=== PATIENT | male | born 1965 | race Caucasian/White ===

== ENCOUNTER 2017-11-09 05:44 | Day surgery (SDC) | payer OTHER, SELFPAY ==
[2017-11-09] VITALS (8 sets, daily range): BP systolic 111–149; BP diastolic 75–96; PULSE 51–96; RESP 16; TEMP 36–36.1; O2SAT 94–100
--- NOTE | 2017-11-09 06:19 | PCM.HP.STD ---
Problem List (1) Screening for intestinal cancer Status: Acute History of Present Illness Date of Admission: 11/09/17 The patient is a 52 year old M who presents for screening colonoscopy. He has never had a previous evaluation. He denies any family history of colon polyps or colon cancer. He has had an intentional 15 pound weight loss. Denies bright red blood per rectum or melena. No abdominal pain. In 2011 he did have a myocardial infarction. He had a coronary stent placed at that time. He is routinely on aspirin and clopidogrel. He was instructed to stop his clopidogrel for 5 days pre-intervention. Past Medical History Allergies No Known Allergies Allergy (Verified 11/03/17 13:14) Home Medications: Ambulatory Orders Medication Instructions Recorded carvedilol 3.125 mg tablet 3.125 mg PO BID #180 tab 07/15/17 clopidogrel 75 mg tablet 75 mg PO QDAY #90 tab 07/15/17 lisinopril 2.5 mg tablet 2.5 mg PO QDAY #90 tab 07/15/17 Aspirin E.C. [Ecotrin] 81 mg PO QHS 11/03/17 Atorvastatin Calcium [Lipitor] 80 mg PO QHS 11/03/17 Meloxicam [Mobic] 7.5 mg PO QHS 11/03/17 Nitroglycerin 0.4 mg SL PRN PRN 11/03/17 Pantoprazole Sodium [Protonix] 40 mg PO DAILY 11/03/17 Ranitidine HCl 150 mg PO PRN PRN 11/03/17 Valacyclovir HCl [Valacyclovir] 500 mg PO PRN PRN 11/03/17 Surgical History: - - 2011 coronary angiogram with stent placement Smoking Status: Former smoker Review of Systems Constitutional: Denies: Weight Change Eyes: Denies: Blurred vision, Vision Change HEENT: Denies: Ear Pain, Eye Pain Cardiovascular: Denies: Chest Pain, Claudication Respiratory: Denies: Cough, Shortness of Breath Gastrointestinal: Denies: Hematemesis, Hematochezia Genitourinary: Denies: Dysuria, Hematuria Musculoskeletal: Denies: Leg Pain Skin: Denies: Jaundice Neurological: Denies: Confusion Psychiatric: Denies: Depression Endocrine: Denies: Change in Body Habitus Hematologic/ Lymphatic: Denies: Easy Bleeding VTE Information - Inpt Only VTE Present on Admission: No Patient Problems: Active and Suspected Problems Screening for intestinal cancer (Acute) - Physical Exam General: Alert, Oriented x3, Cooperative, No apparent distress HEENT: Atraumatic Oral: Moist Mucosa Neck: Supple Lungs: Clear to auscultation Cardiovascular: Regular rate, Regular Rhythm Abdomen: Bowel Sounds Present Extremities: No clubbing Skin: No rashes Musculoskeletal: No Tenderness to Palpation of Joints or Extremities Lymphatic: No Cervical, Supraclavicular, or Inguinal Adenopathy Neurological: Cranial nerves II-XII grossly intact Vital Signs Pulse Resp BP Pulse Ox 68 16 149/96 H 97 11/09/17 06:07 11/09/17 06:07 11/09/17 06:07 11/09/17 06:07 Oxygen Delivery Method Room Air Assessment/Plan Active and Suspected Problems Screening for intestinal cancer (Acute) Time out and informed consent was obtained. 52-year-old gentleman who presents for screening colonoscopy. He is aware of the technique, benefits, risks, alternatives. I plan to proceed under IV sedation. The patient then should be able to resume his routine medications including his routine anticoagulants. Primary CARE physicians Dr. Mitchell Santana M.D., F.A.C.S.
--- NOTE | 2017-11-09 06:46 | COLBX_PTH ---
PATIENT: YADIRA LUCERO LOC: EN U#:[id number] AGE/SX: 52/M ROOM: RE11/09/[address]: Dr. Sabino Santana MD : 1965 BED: DIS: 11/09/2017 SPEC #: [id number] RECD: 11/09/17 10:17 STATUS: VALENTÍN ARTI #: [id number] KATHIE: 11/09/17 06:[address]: Sabino Santana DEPT: SURGICAL PATHOLOGY RECD BY: Bola Oates ENTERED: 11/09/17 12:09 SP TYPE: COLON BX OTHR DR: Dr. Mitchell Denis MD Tissues: Sigmoid colon biopsy Procedures: Surgery Specimen Level IV HEADER OPERATION: Colonoscopy with biopsy PRE-OP DIAGNOSIS: Screening TISSUE SUBMITTED: Proximal sigmoid polyp biopsy MICROSCOPIC DIAGNOSIS Proximal sigmoid colon polyp, biopsy: Fragments of hyperplastic polyp. SJ:navin 11/10/17 MICROSCOPIC DESCRIPTION Slides are reviewed. GROSS DESCRIPTION Received in fixative is one container labeled with the patient's name and designated proximal sigmoid polyp biopsy. The specimen consists of multiple irregular fragments of light manzo soft tissue that in aggregate measure 1 x 0.2 x 0.1 cm. The specimen is totally submitted in one cassette. / SJ:navin 11/09/17 TC:5 CPT: 37287
--- NOTE | 2017-11-09 06:53 | PCM.OPRPT ---
Problem List (1) Screening for intestinal cancer Status: Acute Report of Operation Date of Procedure: 11/09/17 Pre-Operative Diagnosis: Screening for intestinal cancer Post-Operative Diagnosis: Sigmoid diverticulosis. 6 mm sessile polyp of the proximal sigmoid colon Surgery/Procedure Performed:: Colonoscopy with cold forcep polypectomy Description of Surgical Findings:: Timeout and informed consent was obtained. 52-year-old gentleman was taken to the endoscopy suite. He was placed in the left lateral decubitus position. Throughout the procedure total 100 mg Demerol 3.5 mg of Versed were given his intravenous sedation. Digital rectal exam performed. Normal anal tone. 1+ with loss prostate. No mass lesions. Flexible colonoscope inserted in the rectum and advanced through a slightly tortuous sigmoid colon. The scope was then readily advanced through the transverse colon. Transabdominal pressure was required to get the scope to go to the cecum. The cecum and ileocecal valve area was nicely achieved. Bowel prep was quite good. The scope was then carefully withdrawn from the cecum and ascending colon transverse colon descending colon and sigmoid. In the sigmoid colon there was moderate diverticulosis though no evidence of acute inflammation. A very flat hard to inspect 6 mm sessile polyp of the proximal sigmoid identified. Cold forceps were used to sample and eradicate this area. The scope was further withdrawn the rectum retroflexion interrupted verge inspected. This was not remarkable. Excess fluid and air was aspirated free the procedure was completed with the patient tolerating it well. Impression Small sessile polyp in the proximal sigmoid Sigmoid diverticulosis The patient will be notified of pathology results as they become available. He has not had a previous screening colonoscopy. Next colonoscopy in 3-5 years pending pathology. Cc: Dr. Mitchell Santana M.D., F.A.C.S. medications were given at 0634. Procedure was started 0636. The patient cecum was reached at 0640.59. Procedure was completed at 0650.19. Type of Anesthesia:: IV Sedation
== END 2017-11-09 09:24 | disposition home or self-care (01) ==
LOC: EN 05:46 → AC 05:48
PROVIDERS: Family Provider Family Medicine; PCP Family Medicine; Visit Provider Surgery
PROC: 0DJD8ZZ Inspection of Lower Intestinal Tract, Via Natural or Artificial Opening Endoscopic (ICD-10-PCS; CPT 45378; principal; 2017-11-09 06:25)
DX: Z12.11 Encounter for screening for malignant neoplasm of colon (principal); K57.30 Diverticulosis of large intestine without perforation or abscess without bleeding; K63.5 Polyp of colon; Z79.899 Other long term (current) drug therapy; Z79.02 Long term (current) use of antithrombotics/antiplatelets; Z79.82 Long term (current) use of aspirin; Z87.891 Personal history of nicotine dependence
CPT/HCPCS: 45380; 36415; 84484; 88305; 93005; 99152; 99153; J7120

== ENCOUNTER → 2018-02-23 17:17 | Outpatient (CLI) | payer OTHER, SELFPAY ==
--- NOTE | 2018-02-23 17:21 | RAD_ITS ---
STUDY: X-RAY - LUMBAR SPINE REASON FOR EXAM: Male, 52 years old. Low back pain radiating into the buttocks. TECHNIQUE: 5 view(s) of the lumbar spine were obtained. COMPARISON: Prior comparison studies are not available for review at this time. FINDINGS: Normal lumbar lordosis. There is no substantial scoliosis. There is mild anterolisthesis at L5-S1. There is suggestion for right-sided spondylolysis of L5. There is multilevel endplate spondylosis of the lumbar vertebrae. There is multi-level degenerative disc disease with multi-level disc space narrowing. There is mild decreased height of the L2, L1, T12 and T11 vertebral bodies. This may be developmental variant but mild old compression fractures are also possible. There is atherosclerotic calcification of the abdominal aorta without a demonstrated aneurysm. RAD/L/S Spine Min 4 Views IMPRESSION: 1. Multilevel degenerative disc disease and degenerative arthropathy of the lumbar spine. 2. Mild anterolisthesis at L5-S1 with spondylolysis of L5. Electronically Signed: Shruthi Scott MD at 5:33 EDT , Service support ,
== END ==
PROVIDERS: Family Provider Family Medicine; PCP Family Medicine; Visit Provider Family Medicine
DX: M54.5 Low back pain (principal)
CPT/HCPCS: 72110

== ENCOUNTER → 2018-06-10 09:11 | Outpatient (CLI) | payer OTHER, SELFPAY ==
--- NOTE | 2018-06-10 10:00 | MRI_ITS ---
STUDY: MRI LUMBAR SPINE WITHOUT CONTRAST REASON FOR EXAM: Male, 52 years old. Radiculopathy, L POSTERIOR BUTTOCK, NKI X 9 MON. TECHNIQUE: Standardized fat and water weighted pulse sequences were obtained in the sagittal and axial planes. COMPARISON: X-ray dated February 23, 2018 FINDINGS: T12-L1: There is minimal disc space narrowing and endplate spondylosis. There is no significant disc herniation, central canal or foraminal stenosis. There is straightening of the normal lumbar lordosis. There is no substantial scoliosis. Normal conus medullaris that terminates at the L1 L1-2: There is minimal disc space narrowing and endplate spondylosis. There is no significant disc herniation, central canal or foraminal stenosis. L2-3: There is mild disc space narrowing and endplate spondylosis. There is no significant disc herniation, central canal or foraminal stenosis. L3-4: There is mild disc space narrowing and endplate spondylosis. There is no significant disc herniation, central canal or foraminal stenosis. L4-5: There is minimal disc space narrowing and endplate spondylosis. There is no significant disc herniation, central canal or foraminal stenosis. There is moderate facet arthropathy L5-S1: There is severe disc space narrowing and endplates spondylosis. There is spondylolysis with grade 1 anterolisthesis and disc uncovering without significant central canal stenosis. There is moderate bilateral foraminal stenosis Normal visualized sacral ala. Normal visualized paraspinous soft tissue structures. MRI/Spine Lumbar (Routine) IMPRESSION: L5/S1: Spondylolysis with Grade 1 anterolisthesis. Moderate bilateral foraminal stenosis Electronically Signed: Darrell Jeffrey MD at 9:54 EST Tel , Service support ,
== END ==
PROVIDERS: Family Provider Family Medicine; PCP Family Medicine; Referring Provider Family Medicine; Visit Provider Family Medicine
DX: M54.31 Sciatica, right side (principal); M54.32 Sciatica, left side
CPT/HCPCS: 72148

== ENCOUNTER → 2019-02-14 10:31 | Outpatient (CLI) | payer OTHER, SELFPAY ==
[2018-11-17 13:32] VITALS: BMI 36.3
[2019-02-14 12:47] LABS: Anion Gap 7 (5-15); BUN 14 mg/dL (7-18); BUN/Creat Ratio 17.4 RATIO (10-20); Calcium,Total 8.7 mg/dL (8.5-10.1); Chloride 110 mmol/L (98-107); EST Glomerular Filtration Rate 107 mL/min (>60); Est Glom Filt Rate - Afr Amer 129 mL/min (>60); Glucose 85 mg/dL (74-106); Potassium 4.2 mmol/L (3.5-5.1); Sodium Level 142 mmol/L (136-145)
== END ==
PROVIDERS: Family Provider Family Medicine; PCP Family Medicine; Visit Provider Family Medicine
DX: I10 Essential (primary) hypertension (principal)
CPT/HCPCS: 36415; 80048

== ENCOUNTER → 2020-06-03 10:14 | Outpatient (CLI) | payer OTHER, SELFPAY ==
[2019-11-23 16:11] VITALS: BMI 35.5
[2020-06-03 12:57] LABS: ALB/GLOB Ratio 0.9 RATIO (0.9-2.4); AST(SGOT) 24 U/L (15-37); Alanine Aminotransfer ALT/SGPT 38 U/L (16-61); Albumin, Serum 3.7 g/dL (3.2-5.0); Alkaline Phosphatase 70 U/L (45-117); Anion Gap 7 (5-15); BUN 19 mg/dL (7-18); BUN/Creat Ratio 24.1 RATIO (10-20); Calcium,Total 8.7 mg/dL (8.5-10.1); Chloride 106 mmol/L (98-107); Cholesterol 155 mg/dL (200); Creatinine, Serum 0.79 mg/dL (0.70-1.30); EST Glomerular Filtration Rate 109 mL/min (>60); Est Glom Filt Rate - Afr Amer 132 mL/min (>60); Glucose 100 mg/dL (74-106); High Density Lipoprotein 38 mg/dL; Potassium 4.4 mmol/L (3.5-5.1); Protein, Total 7.7 g/dL (6.4-8.2); Sodium Level 139 mmol/L (136-145); Thyroid Stim Hormone (TSH) 4.15 uIU/mL (0.358-3.74); Triglycerides 76 mg/dL; Very Low Density Lipoprotein 15 mg/dL (5-40)
[2020-06-03 14:28] LABS: T4 Free Direct 0.92 ng/dL (0.76-1.46)
== END ==
PROVIDERS: Visit Provider Family Medicine
DX: I10 Essential (primary) hypertension (principal); E78.5 Hyperlipidemia, unspecified; E03.9 Hypothyroidism, unspecified
CPT/HCPCS: 36415; 80053; 80061; 84439; 84443

== ENCOUNTER 2020-08-27 09:27 | Outpatient (RCR) | payer OTHER, SELFPAY ==
[2019-11-23 16:11] VITALS: BMI 35.5
[2020-08-27] MEDS: COVID-19 VACC, MRNA(PFIZER)/PF 30 MCG/0.3 ML SYRINGE IM (17:24)
[2020-09-17] MEDS: COVID-19 VACC, MRNA(PFIZER)/PF 30 MCG/0.3 ML SYRINGE IM (16:51)
== END 2020-11-19 23:59 ==
LOC: IMMUN 09:27
PROVIDERS: PCP Family Medicine; Referring Provider Family Medicine; Visit Provider Family Medicine
DX: Z23 Encounter for immunization (principal)
CPT/HCPCS: 0001A; 0002A; 91300

== ENCOUNTER → 2020-09-19 13:47 | Outpatient (CLI) | payer OTHER, SELFPAY ==
[2019-11-23 16:11] VITALS: BMI 35.5
--- NOTE | 2020-09-19 14:07 | CDU_ITS ---
Reason For Study: TIA, carotid stenosis Rt. Velocities/BP Lt. Velocities/BP Prox CCA 79.9/30.4 cm/sec. Prox CCA 92.4/28.6 cm/sec. Mid CCA 94.3/26.5 cm/sec. Mid CCA 86.3/28.6 cm/sec. Dist CCA 85.2/25.2 cm/sec. Dist CCA 69.1/22.5 cm/sec. Prox ICA 95.5/29.8 cm/sec. Prox ICA 63/21.2 cm/sec. Mid ICA 73.6/31.6 cm/sec. Mid ICA 81.4/37.2 cm/sec. Dist ICA 86.4/35.3 cm/sec. Dist ICA 74/33.5 cm/sec. Rt. ICA/CCA = 1.12. Lt. ICA/CCA = 0.94. Prox ECA 143/38.9 cm/sec. Prox ECA 104.7/26.1 cm/sec. Rt. Vert. 61.8/28.6 cm/sec. Lt. Vert. 53.2/17.6 cm/sec. Right Extracranial There is intimal thickening but no significant atherosclerotic plaque noted in the right common carotid artery. There is heterogeneous, irregular atherosclerotic plaque noted in the right internal carotid artery. There is intimal thickening but no significant atherosclerotic plaque noted in the right external carotid artery. Antegrade flow is noted in the right vertebral artery. Left Extracranial There is intimal thickening but no significant atherosclerotic plaque noted in the left common carotid artery. There is homogeneous, smooth atherosclerotic plaque noted in the left internal carotid artery. There is heterogeneous, smooth atherosclerotic plaque noted in the left external carotid artery. Antegrade flow is noted in the left vertebral artery. Procedure Carotid Duplex 93052. This is a Carotid Duplex examination using B-mode, color flow and specral Doppler. Exam performed in department. VL/Carotid Duplex Ultrasound Interpretation Summary Mild (<50%) stenosis right extracranial internal carotid. Mild (<50%) stenosis left extracranial internal carotid. Flow within the vertebral arteries is antegrade bilaterally. Ordering Physician: Mitchell Denis Referring Physician: Mitchell Denis Performed By: Gwen Rogers RVT
== END ==
PROVIDERS: PCP Family Medicine; Referring Provider Family Medicine; Visit Provider Family Medicine
DX: Z86.73 Personal history of transient ischemic attack (TIA), and cerebral infarction without residual deficits (principal)
CPT/HCPCS: 93880

== ENCOUNTER → 2020-10-18 06:57 | Outpatient (CLI) | payer OTHER, SELFPAY ==
[2020-09-25 15:36] VITALS: BMI 35.6
--- NOTE | 2020-10-18 17:55 | STRESSREP_ITS ---
Stress Test Report Exercise myocardial perfusion stress test. 54-year-old man with a history of coronary disease status post previous stenting of the circumflex artery. Stress protocol: Resting EKG demonstrates normal sinus rhythm with a rate of 63 bpm normal intervals are noted resting blood pressure is 140/86 mmHg. The patient exercised according to regular Scott protocol for total duration of 9 minutes and 30 seconds the maximum heart rate attained was 146 bpm which was 87% of maximum predicted heart rate the maximum workload was 10.9 metabolic equiva lents. At rest there were no ST or T wave changes noted to suggest ischemia and at peak exercise upsloping ST changes only were noted with did not meet the criteria for ischemia. No clinical angina was noted. The peak blood pressure was 184/88 mmHg. The test was terminated due to leg discomfort. No chest pain was noted. Myocardial perfusion protocol. 14.9 mCi of technetium 99m sestamibi was injected at rest. The patient exercised according to regular Scott protocol for 9-1/2 minutes and at peak exercise 44.7 mCi of technetium 99m sestamibi was injected stress images were obtained stress and rest images were reconstructed in comparing the short axis vertical long and horizontal long axis. Gated images were also obtained. Perfusion SPECT analysis: Review of the stress images demonstrate normal uptake of tracer noted in all areas of the myocardium. The resting images similarly demonstrate normal uptake of tracer noted in all areas of the myocardium. No areas of reversibility are noted to suggest ischemia and no previous infarct is noted. Gated SPECT analysis: The gated ejection fraction is 62%. Conclusion: Normal exercise myocardial perfusion stress test at a high workload. Good functional aerobic capacity. No ischemia noted.
== END ==
PROVIDERS: PCP Family Medicine; Referring Provider Physician Assistant Medical; Visit Provider Physician Assistant Medical
DX: I25.10 Atherosclerotic heart disease of native coronary artery without angina pectoris (principal); R07.9 Chest pain, unspecified
CPT/HCPCS: 78452; 93017; A9500; A4216

== ENCOUNTER 2021-07-24 12:48 | Outpatient (CLI) | payer OTHER, SELFPAY ==
--- NOTE | 2021-07-24 12:57 | VDLE_ITS ---
Reason For Study: pain Procedure LEFT This is a venous duplex using B-mode, color GSV is normal. flow and spectral Doppler. CFV is compressible, spontaneous, phasic, Exam performed in department. competent, and demonstrates normal The exam was abbreviated due to the COVID 19 augmentation. protocol. FV is compressible, spontaneous, phasic, The exam was diagnostic. competent and demonstrates normal A preliminary report was called and/or faxed augmentation. to [place] PA-C. POP V is compressible, spontaneous, phasic, competent and demonstrates normal augmentation. T/P Trunk is compressible. PTV is compressible. LT PerV is compressible. Heterogeneous area in the gastroc muscle measuring .95 x 3.14 cm in short. Area is nonvascular. VL/Venous Duplex US, Unilateral Interpretation Summary There is no evidence of left lower extremity deep vein thrombosis. Left great s aphenous vein appears patent and compressible segmentally. 0.95 x 3.14 cm nonvascular structure withi n the left gastrocnemius muscle. Clinical correlation indicated Abbreviated COVID-19 protocol utilized Ordering Physician: Rancho Don Performed By: Mukesh Duff RVT
== END 2021-07-24 23:59 | disposition home or self-care (01) ==
PROVIDERS: PCP Family Medicine; Referring Provider Physician Assistant Surgical; Visit Provider Physician Assistant Surgical
DX: M79.662 Pain in left lower leg (principal)
CPT/HCPCS: 93971

== ENCOUNTER 2021-08-20 16:51 | Outpatient (CLI) | payer OTHER, SELFPAY | END 2021-08-20 23:59 | disposition home or self-care (01) | PROVIDERS: PCP Family Medicine; Referring Provider Nurse Practitioner Gerontology; Visit Provider Nurse Practitioner Gerontology | DX: G47.10 Hypersomnia, unspecified (principal); I25.10 Atherosclerotic heart disease of native coronary artery without angina pectoris; I10 Essential (primary) hypertension | CPT/HCPCS: 95806 ==

== ENCOUNTER 2021-09-23 18:26 | Outpatient (CLI) | payer OTHER, SELFPAY ==
--- NOTE | 2021-09-23 18:28 | CT_ITS ---
STUDY: LOW DOSE CT LUNG CANCER SCREENING REASON FOR EXAM: Male, 55 years old. Smoker and gt; 40 pack years RADIATION DOSAGE (If Supplied By Facility): CTDIvol = ( 4.02 ) mGy, DLP = ( 140.44 ) mGycm TECHNIQUE: No contrast was administered. Low dose technique was utilized (average mAS-38 and kVp 120). 1.25 mm axial source images with a slice interval of 1.25-mm were reconstructed in lung windows. 2.5 mm axial source images with a slice interval of 2.5-mm were reconstructed in lung windows. 5.0 mm axial source images with a slice interval of 5.0-mm were reconstructed in soft tissue windows. COMPARISON: None. NODULES: No suspicious nodules are seen. Emphysema: No evidence of emphysematous change. Endobronchial lesion: None Aorta: Mild degree of atherosclerotic plaque formation. CORONARY ARTERIES: Coronary artery calcification Heart: Unremarkable Pulmonary artery: Unremarkable Mediastinal nodes: Small mediastinal lymph nodes. Other chest and abdominal findings: CT/Low Dose CT Lung Screening IMPRESSION: Lung-RADS category 2 - Continue annual screening with LDCT in 12 months. IMPORTANT NOTES FOR USE: ACR Lung-RADS Version 1.1 Assessment Categories Release Date: 2018 Category: Coded 0-4 bases on nodule(s) with highest degree of suspicion. Negative screen is defined as categories 1 and 2; a positive screen is defined as categories 3 and 4. Category 3 and 4A nodules that are unchanged on interval CT should be coded as category 2, and individuals returned to screening in 12 months. Category 4X: Category 3 or 4 nodules with additional imaging findings that increase the suspicion of lung cancer, such as spiculation, GGN that doubles in size in 1 year, enlarged lymph notes, etc. Category Modifiers: S (significant finding unrelated to lung cancer) Electronically Signed: Jude Rothman MD at 8:46 EDT ,
== END 2021-09-23 23:59 | disposition home or self-care (01) ==
LOC: CT 18:28
PROVIDERS: PCP Family Medicine; Visit Provider Nurse Practitioner Acute Care
DX: F17.210 Nicotine dependence, cigarettes, uncomplicated (principal)
CPT/HCPCS: 71271

== ENCOUNTER → 2021-11-14 | Outpatient (CLI) | payer OTHER, SELFPAY ==
--- NOTE | 2021-11-14 10:40 | VDLE_ITS ---
Reason For Study: Pain Procedure LEFT This is a venous duplex using B-mode, color GSV is normal. flow and spectral Doppler. CFV is compressible, spontaneous, phasic, Exam performed in department. competent, and demonstrates normal A preliminary report was called and/or faxed augmentation. to [place]. FV is compressible, spontaneous, phasic, competent and demonstrates normal augmentation. POP V is compressible, spontaneous, phasic, competent and demonstrates normal augmentation. T/P Trunk is compressible. PTV is compressible. LT PerV is compressible. Nonvascularized structure noted in the posterior knee calf muscle measuring 2.36 x 3.21 x 5.89 cm. VL/Venous Duplex US, Unilateral Interpretation Summary There is no evidence of left lower extremity deep vein thrombosis. Left great s aphenous vein appears patent and compressible segmentally. Nonvascularized complex structure posterio r left knee calf musculature measuring 2.36 x 3.21 x 5.89 cm of undetermined etiology. Clinical correlation would be appropriate. Ordering Physician: Rancho Don Performed By: Gwen Rogers RVT
== END | disposition home or self-care (01) ==
LOC: CVS 10:37
PROVIDERS: Referring Provider Physician Assistant Surgical; Visit Provider Physician Assistant Surgical
DX: M79.662 Pain in left lower leg (principal)
CPT/HCPCS: 93971

== ENCOUNTER 2021-12-25 16:43 | Emergency (ER) | payer OTHER, SELFPAY ==
[2021-12-25 16:44] VITALS: BP 141/89; PULSE 67; RESP 16; TEMP 37.1; O2SAT 98; BMI 33.4
--- NOTE | 2021-12-25 17:07 | CT_ITS ---
EXAM: CT ABDOMEN AND PELVIS WITHOUT INTRAVENOUS CONTRAST CLINICAL INDICATION: Pain TECHNIQUE: Helically acquired images were obtained of the abdomen and pelvis without intravenous contrast. This CT exam was performed using one or more of the following dose reduction techniques: automated exposure control, adjustment of the mA and/or kV according to patient size, and/or use of iterative reconstruction technique. This report was created using [employer] report generation technology. RADIATION DOSE: CTDIvol = 17.57 mGy, DLP = 895.64 mGy-cm. COMPARISON: None. FINDINGS: LOWER THORAX: Coronary artery calcifications. Lung bases are clear. No cardiomegaly. No significant pericardial effusion. ABDOMEN: LIVER: Unremarkable. Homogeneous. GALLBLADDER AND BILE DUCTS: Unremarkable. No calcified gallstones. No gallbladder distention or wall edema. No intra- or extrahepatic biliary ductal dilation. PANCREAS: Unremarkable. No focal cystic mass. SPLEEN: Unremarkable. Normal size without focal cystic or solid mass. ADRENALS: Unremarkable. No nodules. KIDNEYS AND URETERS: Nonobstructing 3 mm stone left kidney. Small cyst left kidney. No follow-up imaging required. Normal renal size and position. STOMACH AND BOWEL: Scattered diverticula without diverticulitis. No stomach or bowel distention. PELVIS: APPENDIX: No evidence of acute appendicitis. BLADDER: Unremarkable. REPRODUCTIVE: Unremarkable as visualized. No mass. ABDOMEN and PELVIS: INTRAPERITONEAL SPACE: Unremarkable. No ascites or other fluid collection. No free air. BONES/JOINTS: Bilateral spondylolysis with grade 1 spondylolisthesis L5-S1. No suspicious lytic or blastic abnormality. SOFT TISSUES: Unremarkable. No discrete abdominal or pelvic wall hernia. VASCULATURE: Unremarkable. Abdominal aorta is non-dilated. LYMPH NODES: Unremarkable. No enlarged lymph nodes. CT/Abdomen/Pelvis without Cont IMPRESSION: 1. Coronary artery disease. 2. Nonobstructing 3 mm stone left kidney. 3. Scattered diverticula without diverticulitis. 4. Bilateral spondylolysis with grade 1 spondylolisthesis L5-S1. 5. No acute abdominal pelvic abnormality. Electronically Signed: Magen Hernadez MD at 17:56 EDT ,
--- NOTE | 2021-12-25 17:08 | ED.VIS.GI ---
HPI HPI - GI History of Present Illness Chief Complaint: Flank Pain Informant: patient Abdominal Pain/Flank Pain Onset: Today and Yesterday Context: Gradual Onset Timing: Intermittent Quality: Aching Location: RLQ and Right Flank Current Severity: Mild Maximum Severity: Moderate Worsened by: Movement Relieved by: Remaining Still Nausea/Vomiting/Emesis GI Symptom: Negative for Nausea or Vomiting Associated Symptoms Associated Symptoms: Negative for Dysuria, Frequency, Hematuria or Urgency Narrative Narrative: 56-year-old male history of prior [place] with cardiac stent on Plavix. States yesterday he started having right lower quadrant right flank pain. More significant today. Denies any nausea, vomiting, diarrhea or fever. No constipation. No dysuria or hematuria. No trauma. He denies any history of kidney stones. Has never had any abdominal surgeries. Denies any back pain. Prior similar symptoms: No Recent Illness/Hospitalization: No PFSH PFS Medical History (Updated 12/25/21 @ 18:[address] Boyd Bryant MD) Atherosclerosis of coronary artery of [place] without angina pectoris Chronic neck and back pain Essential (primary) hypertension History of inferior wall myocardial infarction Hyperlipidemia Knee pain Shoulder pain Home Medications aspirin 81 mg tablet,delayed release 81 mg PO QHS 11/03/17 [History Last Taken Unknown] nitroglycerin 0.4 mg sublingual tablet 0.4 mg sublingual PRN PRN chest pain 11/03/17 [History Last Taken Unknown] valacyclovir 500 mg tablet 500 mg PO PRN PRN cold sores 11/03/17 [History Last Taken Unknown] pantoprazole 20 mg tablet,delayed release 20 mg PO .MWF 09/26/20 [History Last Taken Unknown] atorvastatin 80 mg tablet 80 mg PO QHS #90 tabs 05/20/21 [Rx Last Taken Unknown] carvedilol 3.125 mg tablet (Coreg) 3.125 mg PO BID #180 tabs 05/20/21 [Rx Last Taken Unknown] clopidogrel 75 mg tablet (Plavix) 75 mg PO QDAY #90 tabs 05/20/21 [Rx Last Taken Unknown] lisinopril 5 mg tablet 5 mg PO DAILY #90 tabs 11/06/21 [Rx Last Taken Unknown] Allergy/AdvReac Type Severity Reaction Status Date / Time No Known Allergies Allergy Verified 12/25/21 16:45 Surgical History History of coronary artery stent placement (08/15/11) History of knee surgery Social History Smoking Status: Former smoker Tobacco: How many years used: 15 Electronic Cigarette Use: not used how long ago did patient quit smoking: Quit in 2013 second hand exposure: No alcohol intake: never substance use type: does not use ROS ROS ED ROS Narrative Right lower quadrant and flank abdominal pain. Denies nausea, vomiting, diarrhea or fever. No dysuria. Review of Systems ROS Unobtainable: Denies due to encephalopathy Constitutional Constitutional ED: Denies chills ENT ENT ED: Denies ear pain Cardiovascular Cardiovascular: Denies chest pain Respiratory/Chest Respiratory/Chest: Denies cough Gastrointestinal Gastrointestinal: Reports abdominal pain; Denies constipation, diarrhea, melena, nausea or vomiting Genitourinary Genitourinary ED: Denies dysuria or hematuria Musculoskeletal Musculoskeletal: Denies arthralgias Integumentary Denies abscess Neurologic Neurologic: Denies headache(s) Psychiatric Psychiatric: Denies anxiety Endocrine Endocrinology: Denies polydipsia Hematologic/Lymphatic Hematologic/Lymphatic: Denies easy bleeding Allergic/Immunologic Allergic/Immunologic ED: Denies mouth swelling EXAM Physical Exam Narrative Exam Narrative: 56-year-old male no acute distress. Vital signs stable afebrile. present at bedside. H EENT exam unremarkable. Lungs are clear. Heart regular rhythm. Abdomen soft nondistended normal bowel sounds no peritoneal signs. Mild right lower quadrant tenderness. Is not specifically McBurney's point. There is no signs of trauma. Right upper and left side of his abdomen is nontender. There is no hernia or mass. No distention. No obstruction. No pulsatile mass. External exam unremarkable. No palpable or visual hernia. Back nontender. Neurologic exam normal. Moving all 4 extremities. Const Vital Signs: 12/25/21 16:44 12/25/21 18:46 Temperature 98.8 F Temperature Source Temporal Pulse Rate 67 Respiratory Rate 16 16 Blood Pressure 141/89 H Blood Pressure Mean 106 Pulse Ox 98 Oxygen Delivery Method Room Air Positive well nourished, well developed and obese; Negative for cachectic, contractures or unkempt General Appearance ED: well developed; Negative for unkempt, cachectic or contractures Nutritional Appearance: obese; Negative for cachectic HEENT Reports moist mucous membranes normocephalic and atraumatic; Negative for trauma or tenderness Eyes PERRL and EOMs intact bilaterally General Eye ED: Negative for pale conjunctiva or scleral icterus Neck no lymphadenopathy, supple and no JVD General: Negative for tenderness Lymph Lymphatic: Negative for other Resp normal respiratory effort Effort and Inspection: Negative for respiratory distress Auscultation: Negative for rales or rhonchi Cardio regular rate, regular rhythm, S1 normal heart sound, S2 normal heart sound and no murmurs Rate: Negative for bradycardia Rhythm: Negative for abnormal rhythm GI non-distended and no masses; Negative for non-tender Inspection: Negative for abdominal distention Auscultation: normoactive bowel sounds; Negative for hyperactive bowel sounds or hypoactive bowel sounds Palpation: soft and tender; Negative for guarding, rigid, hepatomegaly, splenomegaly, hernia, mass, pulsatile mass or rebound tenderness present Back/Spine no CVA tenderness General Back: Negative for CVA tenderness Cervical Spine: Negative for cervical spine tenderness Thoracic Spine / Upper Back: Negative for thoracic spinal tenderness Lumbar Spine / Lower Back: Negative for lumbar spinal tenderness Extremity full ROM General Extremety ED: Negative for edema or tenderness General Extremity: Negative for edema Neuro CN's II-XII intact bilaterally and moves all extremities Sensorium / Orientation: alert, oriented to person, oriented to place and oriented to time; Negative for orientation impaired, confused, lethargic or stuporous Motor Exam: strength 5/5 throughout; Negative for general weakness Psych mental status grossly normal and thought process normal Appearance: Negative for unkempt Skin no wounds General Skin Exam: Negative for jaundice Lesions: no lesions Rashes: no rashes Trauma: Negative for abrasion Nails: Negative for discolored MDM MDM MDM Narrative Medical decision making narrative: 56-year-old male right lower quadrant flank pain. Exam has pain with rotation about his hips. And lifting his left leg. There is mild tenderness of the right lower quadrant. Its not really consistent with appendicitis. CAT scan labs are pending. This could be appendicitis but will think it is likely. Could be a kidney stone. May be musculoskeletal pain. Repeat exam patient doing well at 6:58 PM. Work-up negative. This may just be abdominal wall pain. Patient states recently lost weight and is very wearing his belt a lot tighter to help keep his pants up. And he may just have an abdominal wall strain or contusion. He will be discharged home with outpatient follow-up if is not improving. Lab Data Attestation: I reviewed the patient's lab results. Lab results narrative: CBC normal. White count of 7. H&H 13 and 42. Electrolytes show a gap of 4 and creatinine 21 0.8. Liver enzymes unremarkable. Glucose 118. Urinalysis negative. 1+ bacteria. No white or red cells. No nitrites. CAT scan of the abdomen shows no acute process. Labs: Laboratory Results - last 24 hr 12/25/21 12/25/21 12/25/21 17:00 17:00 17:15 WBC 7.5 RBC 4.59 L Hgb 13.5 Hct 42.0 MCV 91.5 MCH 29.4 MCHC 32.1 RDW Std Deviation 42.9 RDW Coeff of Beth 12.9 Plt Count 228 MPV 9.8 Immature Gran % (Auto) 0.100 Neut % (Auto) 64.5 Lymph % (Auto) 25.0 [place] % (Auto) 8.6 Eos % (Auto) 1.3 Baso % (Auto) 0.5 Absolute Neuts (auto) 4.8 Absolute Lymphs (auto) 1.86 Nucleated RBC % 0 Sodium 140 Potassium 3.9 Chloride 108 H Carbon Dioxide 28.0 Anion Gap 4 L BUN 21 H Creatinine 0.81 Estim Creat Clear Calc 98.52 Est GFR (MDRD) Af Amer 127 Est GFR (MDRD) Non-Af 105 BUN/Creatinine Ratio 25.9 H Glucose 118 H Calcium 8.6 Total Bilirubin 0.90 AST 22 ALT 33 Alkaline Phosphatase 63 Total Protein 7.2 Albumin 3.7 Globulin 3.5 Albumin/Globulin Ratio 1.1 Urine Color Yellow Urine Clarity Clear Urine pH 6.0 Ur Specific [place] 1.020 Urine Protein 15 H Urine Glucose (UA) Normal Urine Ketones Negative Urine Occult Blood 10 H Urine Nitrite Negative Urine Bilirubin Negative Urine Urobilinogen 1 H Ur Leukocyte Esterase Negative Urine RBC 0-5 SEEN Urine WBC 0-5 SEEN Ur Squamous Epith Cells 0-5 SEEN Urine Bacteria 1+ Urine Mucus 1+ Radiography Diagnostic Testing: Clinical Impression(s) from Imaging Studies Abdomen/Pelvis CT 12/25/21 17:07 IMPRESSION: 1. Coronary artery disease. 2. Nonobstructing 3 mm stone left kidney. 3. Scattered diverticula without diverticulitis. 4. Bilateral spondylolysis with grade 1 spondylolisthesis L5-S1. 5. No acute abdominal pelvic abnormality. Electronically Signed: Magen Hernadez MD at 17:56 EDT , Discharge Plan Triage Chief Complaint: Flank Pain ED Provider: Boyd Bryant Dx/Rx/DC Orders Clinical Impression: Abdominal pain, History of coronary artery disease Instructions: Abdominal Pain Prescriptions: No Action valacyclovir 500 MG tablet 500 mg PO PRN PRN (Reason: cold sores) aspirin 81 MG tablet 81 mg PO QHS nitroglycerin 0.4 MG tablet, sublingual 0.4 mg SL PRN PRN (Reason: chest pain) pantoprazole 20 mg tablet,delayed release (DR/EC) 20 mg PO .MWF clopidogrel [Plavix] 75 mg tablet 75 mg PO QDAY Qty: 90 3RF Label Comments: will stop 5 days prior carvedilol [Coreg] 3.125 mg tablet 3.125 mg PO BID Qty: 180 3RF Rx Instructions: administer with food (meal or snack) atorvastatin 80 mg tablet 80 mg PO QHS Qty: 90 3RF lisinopril 5 mg tablet 5 mg PO DAILY Qty: 90 3RF Primary Care Provider: Anand Roe Referrals: Anand Roe MD [Primary Care Provider] - 1 Week if not improving Activity Restrictions/Additional Instructions: Your work-up was negative. Your labs are good. Your CAT scan did not show anything that would be causing your pain. This very well may be from abdominal wall strain or contusion of your abdominal wall from wearing your belt too tight. Follow-up with your doctor if not improving or return if feeling a lot worse. Ice to abdominal wall. Loosen your belt. Tylenol for pain. Disposition Disposition: Home, Self Care
[2021-12-25 17:14] LABS: Absolute Lymphocyte Count 1.86 X10^3/uL (0.83-4.51); Absolute Neutrophil Count 4.8 X10^3/uL (2.0-7.7); Basophil# 0.04 X10^3/uL; Basophil% 0.5 % (0-1); Eosinophils% 1.3 % (0-5); Hemoglobin 13.5 g/dL (13.0-16.5); Lymphocyte # 1.86 X10^3/ul (0.83-4.51); Mean Corp Hgb Conc 32.1 g/dL (32-36); Mean Corpuscular Hgb 29.4 pg (27.0-32.0); Mean Corpuscular Volume 91.5 fL (80-94); Mean Platelet Vol. 9.8 fl (6.2-12.0); Monocyte# 0.64 X10^3/uL; Monocyte% 8.6 % (0-10); NRBC Flagged by Analyzer 0 % (0-5); Neutrophil % 64.5 % (47-70); Platelet Count 228 K/mm3 (150-450); RBC Distribution Width CV 12.9 % (11.6-14.6); RBC Distribution Width SD 42.9 fl (35.1-43.9); Red Blood Count 4.59 M/mm3 (4.6-6.2); White Blood Count 7.5 K/mm3 (4.4-11.0)
[2021-12-25 17:29] LABS: Color, Urine Yellow (Yellow); Glucose, Dipstick Normal (Normal); Ketone-Dipstick Negative (Negative); Leukocyte Esterase-Dipstick Negative /ul (Negative); Nitrite-Dipstick Negative (Negative); Occult Blood-Urine 10 /ul (Negative); Protein-Dipstick 15 mg/dl (Negative); Urine Bilirubin Dipstick Negative (Negative); Urine Clarity Clear (Clear); Urine Urobilinogen 1 mg/dl (Normal)
[2021-12-25 17:40] LABS: ALB/GLOB Ratio 1.1 RATIO (0.9-2.4); AST(SGOT) 22 U/L (15-37); Alanine Aminotransfer ALT/SGPT 33 U/L (16-61); Albumin, Serum 3.7 g/dL (3.2-5.0); Alkaline Phosphatase 63 U/L (45-117); Anion Gap 4 (5-15); BUN 21 mg/dL (7-18); BUN/Creat Ratio 25.9 RATIO (10-20); Calcium,Total 8.6 mg/dL (8.5-10.1); Chloride 108 mmol/L (98-107); Creatinine, Serum 0.81 mg/dL (0.70-1.30); EST Glomerular Filtration Rate 105 mL/min (>60); Est Glom Filt Rate - Afr Amer 127 mL/min (>60); Estimated Creatinine Clearance 98.52 ml/min; Globulin 3.5 g/dL (2.2-4.2); Glucose 118 mg/dL (74-106); Potassium 3.9 mmol/L (3.5-5.1); Protein, Total 7.2 g/dL (6.4-8.2); Sodium Level 140 mmol/L (136-145)
[2021-12-25 17:49] LABS: White Blood Cells 0-5 SEEN /hpf (0-5)
[2021-12-25 17:50] LABS: Bacteria 1+ /hpf (None Seen); Mucous, Urine 1+ /hpf (<or=2+); Red Blood Cells-Urine 0-5 SEEN /hpf (0-5); Squamous Epithelial Cells - UA 0-5 SEEN /hpf (0-5)
[2021-12-25 18:46] VITALS: RESP 16
== END 2021-12-25 19:09 | disposition home or self-care (01) ==
PROVIDERS: Emergency Provider Emergency Medicine; PCP Family Medicine; Visit Provider Emergency Medicine
DX: R10.31 Right lower quadrant pain (principal); I25.10 Atherosclerotic heart disease of native coronary artery without angina pectoris; M25.551 Pain in right hip; M25.552 Pain in left hip; I10 Essential (primary) hypertension; E78.5 Hyperlipidemia, unspecified; Z79.82 Long term (current) use of aspirin; Z79.899 Other long term (current) drug therapy; G89.29 Other chronic pain; M54.2 Cervicalgia; M54.9 Dorsalgia, unspecified; Z79.02 Long term (current) use of antithrombotics/antiplatelets; I25.2 Old myocardial infarction; Z87.891 Personal history of nicotine dependence; Z95.5 Presence of coronary angioplasty implant and graft
CPT/HCPCS: 74176; 80053; 81001; 85025; 99283; A4216

== ENCOUNTER → 2021-12-31 | Outpatient (CLI) | payer OTHER, SELFPAY ==
--- NOTE | 2021-12-31 11:30 | RAD_ITS ---
STUDY: X-RAY - RIGHT SHOULDER REASON FOR EXAM: Male, 56 years old. Work injury. TECHNIQUE: 4 view(s) of the shoulder. COMPARISON: None. FINDINGS: Normal glenohumeral articulation. Normal acromioclavicular joint. Normal acromion. Normal humeral head and visualized proximal humerus. The soft tissue structures are unremarkable. Normal visualized pulmonary apex. RAD/Shoulder min 2 Views IMPRESSION: Normal x-ray examination of the shoulder. Electronically Signed: Jude Rothman MD at 11:59 EDT ,
== END | disposition home or self-care (01) ==
LOC: MTRAD 11:29
PROVIDERS: PCP Family Medicine; Referring Provider Physician Assistant; Visit Provider Physician Assistant
DX: S49.91XA Unspecified injury of right shoulder and upper arm, initial encounter (principal)
CPT/HCPCS: 73030

== ENCOUNTER → 2022-10-28 | Outpatient (CLI) | payer OTHER, SELFPAY ==
[2022-10-28 11:25] LABS: Thyroid Stim Hormone (TSH) 4.37 uIU/mL (0.358-3.74)
[2022-10-29 09:34] LABS: T4 Free Direct 0.86 ng/dL (0.76-1.46)
== END | disposition home or self-care (01) ==
LOC: LABSPEC 10:54
PROVIDERS: PCP Family Medicine; Referring Provider Family Medicine; Visit Provider Family Medicine
DX: R94.6 Abnormal results of thyroid function studies (principal)
CPT/HCPCS: 84439; 84443

== ENCOUNTER → 2023-04-27 | Outpatient (CLI) | payer OTHER, SELFPAY ==
[2023-04-27 13:22] LABS: T4 Free Direct 0.76 ng/dL (0.76-1.46); Thyroid Stim Hormone (TSH) 4.36 uIU/mL (0.358-3.74)
== END | disposition home or self-care (01) ==
LOC: MFPLAB 10:19
PROVIDERS: PCP Family Medicine; Visit Provider Family Medicine
DX: G47.33 Obstructive sleep apnea (adult) (pediatric) (principal); R79.89 Other specified abnormal findings of blood chemistry
CPT/HCPCS: 36415; 84403; 84439; 84443

== ENCOUNTER → 2023-06-17 | Outpatient (CLI) | payer OTHER, SELFPAY ==
[2023-06-17 18:30] LABS: T4 Free Direct 0.98 ng/dL (0.76-1.46); Thyroid Stim Hormone (TSH) 2.75 uIU/mL (0.358-3.74)
== END | disposition home or self-care (01) ==
LOC: MFPLAB 16:14
PROVIDERS: PCP Family Medicine; Visit Provider Family Medicine
DX: E03.9 Hypothyroidism, unspecified (principal)
CPT/HCPCS: 36415; 84439; 84443

== ENCOUNTER → 2023-06-24 | Outpatient (CLI) | payer OTHER, SELFPAY ==
--- NOTE | 2023-06-24 09:00 | CYST_PTH ---
PATHOLOGY RESULTS PATIENT: YADIRA LUCERO LOC: [facility] U#:[id number] AGE/SX: 57/M ROOM: RE06/24/[address]: Dr. Sabino Santana MD : 1965 BED: DIS: 06/24/2023 SPEC #: [id number] RECD: 06/24/23 11:09 STATUS: VALENTÍN ARTI #: [id number] KATHIE: 06/24/23 09:[address]: Sabino Santnaa DEPT: SURGICAL PATHOLOGY RECD BY: Nery Fonseca ENTERED: 06/24/23 11:42 SP TYPE: Cyst OTHR DR: Dr. Navid Roe MD Tissues: CYST Procedures: Surgery Specimen Level III HEADER OPERATION: Excision of neck cyst PRE-OP DIAGNOSIS: Neck cyst TISSUE SUBMITTED: Neck cyst MICROSCOPIC DIAGNOSIS Neck cyst, excision: Epidermal inclusion cyst. JUVENTINO:navin 06/25/2023 MICROSCOPIC DESCRIPTION Slides are reviewed. GROSS DESCRIPTION Received in fixative is one container labeled with the patient's name and designated neck cyst. The specimen consists of a piece of skin with underlying cyst. The skin piece measures 3.5 x 0.9 cm. The underlying cyst measures 4.0 x 3.0 x 2.5 cm. The cyst appears to be partially ruptured. Serial sections reveal the cyst is filled with sebum-like material. Maintenance Tech sections are submitted in three cassettes. / SJ:navin 06/24/2023 TC:5 CPT: 73037
--- OUTSIDE RECORDS SUMMARY | 2023-06-24 12:53 | XMS RPT_ITS | CCD ---
Author Name Unknown Address [address] [place] [address] Organization [facility] Care Team Providers Care Buying Agent Name Role Phone PHYSICIAN, NONE Primary Care Physician Unavailab le Results Test Name Value Interpretation Reference Range Facil ity Encounters Encounter Date Encounter Type Care Provider Facility Start: 04-03-2021 End: 04-03-2021 Patient encounter procedure MOISES LEWIS PA-C [facility] Evaluation + Plan note Note Date & Type Note Facility Evaluation + Plan note No data available for this section [facility] Hospital Discharge instructions Note Date & Type Note Facility Hospital Discharge instructions No data available for this section [facility] Summary Purpose Family History No Family History Records Found Advance Directives No Advanced Directives Records Found Additional Source Comments (unrecognized sect ion and content) No Status Records Found INFORMATION SOURCE (unrecogn ized section and content) FOR RECORDS PERTAINING TO PATIENTS WHO ARE OR HAVE BEEN ENROLLED IN A CHEMICAL DEPENDENCY/SUBSTANCEABUSE PROGRAM, SOME INFORMATION MAY BE OMITTED. This clinical summary was aggregated from multiple sources. Caution should be exercised in using it in the provision of clinical care. This summary normalizes information from multiple sources, and as a consequence, information in this document may materially change the coding, format and clinical context of patient data. In addition, data may be omitted in some cases. CLINICAL DECISIONS SHOULD BE BASED ON THE PRIMARY CLINICAL RECORDS. [facility]. provides no warranty or guarantee of the accuracy or completeness of information in this document.
== END | disposition home or self-care (01) ==
LOC: LABSPEC 11:14
PROVIDERS: PCP Family Medicine; Referring Provider Surgery; Visit Provider Surgery
DX: R22.1 Localized swelling, mass and lump, neck (principal)
CPT/HCPCS: 88304

== ENCOUNTER → 2024-09-15 | Outpatient (CLI) | payer OTHER, SELFPAY | END | disposition home or self-care (01) | PROVIDERS: PCP Family Medicine; Referring Provider Nurse Practitioner Family; Visit Provider Nurse Practitioner Family | DX: G47.33 Obstructive sleep apnea (adult) (pediatric) (principal) ==

== ENCOUNTER → 2025-02-08 | Outpatient (CLI) | payer OTHER, SELFPAY | END | disposition home or self-care (01) | LOC: MFPLAB 15:44 | PROVIDERS: PCP Family Medicine; Referring Provider Family Medicine; Visit Provider Family Medicine | DX: E03.9 Hypothyroidism, unspecified (principal) | CPT/HCPCS: 36415; 84439; 84443 ==